=== PATIENT | female | born 1990 | race Caucasian/White ===

== ENCOUNTER 2017-01-16 04:30 | Emergency (ER) | payer BC ==
[~2017-01-16] VITALS: Ht 172.7 cm; Wt 110.7 kg
[2017-01-16] MEDS ORDERED: ONDA8TAB12 PO (04:48)
[2017-01-16] MEDS ORDERED: AMOX500C PO (04:48)
[2017-01-16 04:49] VITALS: BP 128/82
--- NOTE | 2017-01-16 04:49 | PHYS DOC ---
Adult General HPI HPI Patient is a 26 year old female who presents with sore throat. She states it started Monday night. She has body aches and fever. Is still able to swallow. Nausea but no vomiting . Normal stool. No recent travel. Is 6 mo post and . Review of Systems Review of Systems Constitutional: Some fever or chills Eyes: Denies change in visual acuity, redness, or eye pain HENT: Positive nasal congestion or sore throat Respiratory: Denies cough or shortness of breath Cardiovascular: No chest pain GI: Denies abdominal pain, mild nausea, NO vomiting, bloody stools or diarrhea : some dysuria but no hematuria Musculoskeletal: Diffuse joint pain Integument: Denies rash or skin lesions Neurologic: Denies headache, focal weakness or sensory changes Allergies Allergies None Physical Exam Physical Exam Constitutional: Well developed, well nourished, no acute distress, non-toxic appearance. HENT: Normocephalic, atraumatic, TM clear bilaterally; bilateral external ears normal, oropharynx moist, nose normal. Post pharynx with tonsillar enlargement and exudate. No peritonsillar abscess; no uvula swelling. no drooling. Eyes: PERRLA, EOMI, conjunctiva normal, no discharge. [ Neck: Normal range of motion, no tenderness, supple, no stridor. Cardiovascular:Heart rate regular rhythm, no murmur Lungs & Thorax: Bilateral breath sounds clear to auscultation Abdomen: Bowel sounds normal, soft, no tenderness, no masses, no pulsatile masses. Skin: Warm, dry, no erythema, no rash. Back: No tenderness, no CVA tenderness. Extremities: No tenderness, no cyanosis, no clubbing, ROM intact, no edema. Neurologic: Alert and oriented X 3, normal motor function, normal sensory function, no focal deficits noted. Psychologic: Affect normal, judgement normal, mood normal. Current Patient Data Vital Signs Vital Signs Date Time Temp Pulse Resp B/P (MAP) Pulse Ox O2 Delivery O2 Flow Rate FiO2 01/16/17 04:49 100.0 20 97 Room Air Reviewed Course & Med Decision Making Course & Med Decision Making evaluated patient. Non toxic in appearance. Tonsillar exudate noted and will empirically treat for strep. She is breast feeding so will use amoxicillin. ZOfran dosed here. given precautions. She also has complaints of infected hair follicle on her thigh and some burning with urination. Urine sent for culture. Since I am placing her on Amoxicillin will not have patient wait for results of UA as she wants to get home to her baby. Will have her PCP f/u on culture though. Dragon Disclaimer Dragon Disclaimer This chart was dictated in whole or in part using Voice Recognition software in a busy, high-work load, and often noisy Emergency Department environment. It may contain unintended and wholly unrecognized errors or omissions. Departure Departure: Impression: Primary Impression: Exudative pharyngitis Disposition: HOME, SELF-CARE Condition: STABLE Referrals: RADHA MATA MD (PCP) Patient Instructions: Viral and Bacterial Pharyngitis Scripts Ondansetron (ZOFRAN ODT) 8 Mg Tab.rapdis 8 MG PO PRN Q6-8HRS Y for NAUSEA, #10 Prov: BROCK MILLER MD 01/16/17 Amoxicillin (AMOXICILLIN) 500 Mg Capsule 1 CAP PO TID, #30 CAP Prov: BROCK MILLER MD 01/16/17 BROCK MILLER MD Jan 16, 2017 04:49
[2017-01-16] MEDS ORDERED: AMOXICILLIN 500 MG CAPSULE PO ONE (05:00)
[2017-01-16] MEDS ORDERED: ONDANSETRON ODT 4 MG TAB.RAPDIS PO ONE (05:00)
[2017-01-16 06:21] LABS: BILIRUBIN,URINE NEG (NEG); CLARITY,URINE CLEAR; COLOR,URINE YELLOW; GLUCOSE,URINE NEG (NEG); NITRITE,URINE NEG (NEG); UROBILINOGEN,URINE 0.2 mg/dL (0.2 mg/dL)
[2017-01-16 06:22] LABS: BACTERIA,URINE 0 /HPF (0-FEW); RBC,URINE 0 /HPF (0-2); SQUAMOUS EPITHELIAL CELL,UR FEW /LPF
== END 2017-01-16 05:00 | disposition home or self-care (01) ==
LOC: ER 04:30
DX: J02.9 Acute pharyngitis, unspecified (principal); M79.1 Myalgia
CPT/HCPCS: 81001; 87086; 99284; Q0162

== ENCOUNTER 2018-06-21 20:51 | Emergency (ER) | payer BC ==
[~2018-06-21] VITALS: Ht 172.7 cm; Wt 110.7 kg
[~2018-06-21 20:51] MED LIST: AMOX500C PO; ONDA8TAB12 PO
[2018-06-21 21:34] LABS: BASO # 0.1 x10^3/uL (0.0-0.2); BASO % 1 % (0-3); EOS # 0.2 x10^3/uL (0.0-0.7); EOS % 2 % (0-3); HEMATOCRIT 40.8 % (36.0-47.0); HEMOGLOBIN 13.7 g/dL (12.0-15.5); LYMPH # 3.9 x10^3/uL (1.0-4.8); LYMPH % 37 % (24-48); MEAN CORPUSCULAR HEMOGLOBIN 31 pg (25-35); MEAN CORPUSCULAR HGB CONC 34 g/dL (31-37); MEAN CORPUSCULAR VOLUME 91 fL (79-100); MONO # 0.7 x10^3/uL (0.0-1.1); MONO % 6 % (0-9); NEUT # 5.9 x10^3uL (1.8-7.7); NEUT % 55 % (31-73); PLATELET COUNT 378 x10^3/uL (140-400); RED BLOOD COUNT 4.46 x10^6/uL (3.50-5.40); RED CELL DISTRIBUTION WIDTH 12.7 % (11.5-14.5); WHITE BLOOD COUNT 10.7 x10^3/uL (4.0-11.0)
--- NOTE | 2018-06-21 21:38 | PHYS DOC ---
Past History Past Medical History: Anxiety, Hypertension Past Surgical History: Appendectomy Alcohol Use: None Drug Use: None Adult General Chief Complaint Chief Complaint: CHEST WALL PAIN HPI HPI 28-year-old female presents with chest pain. The patient has had intermittent chest pain for last 3 days since she has been sitting for a test. She states that when she really concentrates on whether it hurts the pain increases to 7 out of 10. She is ignoring it, it is a 3 out of 10 and it is currently 3 out of 10. Patient is hopeful that is just anxiety due to her studying, but be sure it wasn't something more serious. She denies shortness of breath or diaphoresis. It is not worse with exertion. She has a history of anxiety and tested anxiety specifically. She denies fever or chills. He has no cardiac history. Review of Systems Review of Systems Constitutional: Denies fever or chills [] Eyes: Denies change in visual acuity, redness, or eye pain [] HENT: Denies nasal congestion or sore throat [] Respiratory: Denies cough or shortness of breath [] Cardiovascular: No additional information not addressed in HPI [] GI: Denies abdominal pain, nausea, vomiting, bloody stools or diarrhea [] : Denies dysuria or hematuria [] Musculoskeletal: Denies back pain or joint pain [] Integument: Denies rash or skin lesions [] Neurologic: Denies headache, focal weakness or sensory changes [] Endocrine: Denies polyuria or polydipsia [] All other systems were reviewed and found to be within normal limits, except as documented in this note. Allergies Allergies Allergies Coded Allergies Type Severity Reaction Last Updated Verified latex Allergy Intermediate 01/16/17 Yes Physical Exam Physical Exam Constitutional: Well developed, obese, well nourished, no acute distress, non- toxic appearance. [] HENT: Normocephalic, atraumatic, bilateral external ears normal, oropharynx moist, no oral exudates, nose normal. [] Eyes: PERRLA, EOMI, conjunctiva normal, no discharge. [] Neck: Normal range of motion, no tenderness, supple, no stridor. [] Cardiovascular:Heart rate regular rhythm, no murmur [] Lungs & Thorax: Bilateral breath sounds clear to auscultation [] Abdomen: Bowel sounds normal, soft, no tenderness, no masses, no pulsatile masses. [] Skin: Warm, dry, no erythema, no rash. [] Back: No tenderness, no CVA tenderness. [] Extremities: No tenderness, no cyanosis, no clubbing, ROM intact, no edema. [] Neurologic: Alert and oriented X 3, normal motor function, normal sensory function, no focal deficits noted. [] Psychologic: Affect normal, judgement normal, mood normal. [] Current Patient Data Vital Signs Vital Signs Date Time Temp Pulse Resp B/P (MAP) Pulse Ox O2 Delivery O2 Flow Rate FiO2 06/21/18 21:01 98.2 105 18 99 Room Air Lab Results Laboratory Tests Test 06/21/18 21:15 White Blood Count 10.7 x10^3/uL (4.0-11.0) Red Blood Count 4.46 x10^6/uL (3.50-5.40) Hemoglobin 13.7 g/dL (12.0-15.5) Hematocrit 40.8 % (36.0-47.0) Mean Corpuscular Volume 91 fL (79-100) Mean Corpuscular Hemoglobin 31 pg (25-35) Mean Corpuscular Hemoglobin Concent 34 g/dL (31-37) Red Cell Distribution Width 12.7 % (11.5-14.5) Platelet Count 378 x10^3/uL (140-400) Neutrophils (%) (Auto) 55 % (31-73) Lymphocytes (%) (Auto) 37 % (24-48) Monocytes (%) (Auto) 6 % (0-9) Eosinophils (%) (Auto) 2 % (0-3) Basophils (%) (Auto) 1 % (0-3) Neutrophils # (Auto) 5.9 x10^3uL (1.8-7.7) Lymphocytes # (Auto) 3.9 x10^3/uL (1.0-4.8) Monocytes # (Auto) 0.7 x10^3/uL (0.0-1.1) Eosinophils # (Auto) 0.2 x10^3/uL (0.0-0.7) Basophils # (Auto) 0.1 x10^3/uL (0.0-0.2) EKG EKG Sinus rhythm, rate 92, normal axis, no ST elevations or depressions.[] Radiology/Procedures Radiology/Procedures [] Impressions: Preliminary interpretation: Chest x-ray no acute cardiopulmonary disease Course & Med Decision Making Course & Med Decision Making Pertinent Labs and Imaging studies reviewed. (See chart for details) The patient's labs are unremarkable. Her chest x-ray is unremarkable. Her EKG is unremarkable. Her troponin is negative. I believe the patient is just dealing with test anxiety. She is stable for discharge at this time. [] Dragon Disclaimer Dragon Disclaimer This electronic medical record was generated, in whole or in part, using a voice recognition dictation system. Departure Departure: Impression: Primary Impression: Chest pain Additional Impression: Anxiety reaction Disposition: HOME, SELF-CARE Condition: STABLE Referrals: RADAH MATA MD (PCP) Patient Instructions: Anxiety and Panic Attacks, [id number], Chest Pain ( Nonspecific) Problem Qualifiers Primary Impression: Chest pain Chest pain type: unspecified Qualified Codes: R07.9 - Chest pain, unspecified PRINCESS MAGAÑA DO Jun 21, 2018 21:38
[2018-06-21 21:45] LABS: ALBUMIN 4.1 g/dL (3.4-5.0); CALCIUM 9.2 mg/dL (8.5-10.1); CREATININE 0.8 mg/dL (0.6-1.0); GFR 84.8; POTASSIUM 3.4 mmol/L (3.5-5.1); TOTAL BILIRUBIN 0.3 mg/dL (0.2-1.0); TOTAL PROTEIN 8.1 g/dL (6.4-8.2)
[2018-06-21 22:50] VITALS: BP 160/87
--- NOTE | 2018-06-22 02:26 | RAD ---
PA and lateral chest. HISTORY: Intermittent chest pain, anxiety, high blood pressure PA and lateral views were taken of the chest. Lungs are clear. Heart is normal in size without heart failure. There is no pleural effusion. IMPRESSION: 1. No acute chest disease. Electronically signed by: Jesu Smith MD (06/22/2018 2:22 AM) [facility]
--- NOTE | 2018-06-23 15:58 | EKG ---
[address] [address] Test Date: 2018-06-21 Test Time: 21:23:47 Pat Name: ALDAIR HATFIELD Department: Room: Gender: F Signal Supervisor: : 1990 Requested By: PRINCESS MAGAÑA Order Number: [id number] Reading MD: Measurements Intervals [place] Rate: 92 P: 42 HI: 146 QRS: 0 QRSD: 94 T: 12 QT: 370 QTc: 463 Interpretive Statements SINUS RHYTHM LEFTWARD AXIS NO SPECIFIC ECG ABNORMALITIES RI6.01 Unconfirmed report No previous ECG available for comparison
== END 2018-06-21 23:14 | disposition home or self-care (01) ==
LOC: ER 20:51
DX: F41.1 Generalized anxiety disorder (principal); R07.89 Other chest pain; I10 Essential (primary) hypertension; Z91.040 Latex allergy status
CPT/HCPCS: 36415; 71046; 80053; 84484; 85025; 93005; 99284

== ENCOUNTER 2018-08-21 16:09 | Emergency (ER) | payer BC ==
[2018-08-21 16:25] VITALS: BP 154/81
[2018-08-21] MEDS ORDERED: DIAZ5TAB4 PO (16:40)
[2018-08-21] MEDS ORDERED: MECL25TA3 PO (16:40)
--- NOTE | 2018-08-21 16:40 | PHYS DOC ---
Past History Past Medical History: Anxiety, Hypertension Past Surgical History: Appendectomy Alcohol Use: None Drug Use: None Adult General Chief Complaint Chief Complaint: EARACHE/EAR PAIN HPI HPI Patient is a 28-year-old otherwise healthy female who presents with dizziness. She states is been ongoing all day. She states anytime she moves her head her symptoms worsen. She denies any significant headache or lateralizing neurologic weakness. She states she's had this in the past and they've been told that certain her ear. She denies any fever..[] Review of Systems Review of Systems Constitutional: Denies fever or chills [] Eyes: Denies change in visual acuity, redness, or eye pain [] HENT: Denies nasal congestion or sore throat [] Respiratory: Denies cough or shortness of breath [] Cardiovascular: No additional information not addressed in HPI [] GI: Denies abdominal pain, nausea, vomiting, bloody stools or diarrhea [] : Denies dysuria or hematuria [] Musculoskeletal: Denies back pain or joint pain [] Integument: Denies rash or skin lesions [] Neurologic: Per history of present illness[] Endocrine: Denies polyuria or polydipsia [] All other systems were reviewed and found to be within normal limits, except as documented in this note. Allergies Allergies Allergies Coded Allergies Type Severity Reaction Last Updated Verified latex Allergy Intermediate 01/16/17 Yes Physical Exam Physical Exam Constitutional: Well developed, well nourished, appears very uncomfortable[] HENT: Normocephalic, atraumatic, bilateral external ears normal, minimal cerumen bilaterally, oropharynx moist, no oral exudates, nose normal. [] Eyes: PERRLA, EOMI, conjunctiva normal, no discharge. [] Neck: Normal range of motion, no tenderness, supple, no stridor. [] Cardiovascular:Heart rate regular rhythm, no murmur [] Lungs & Thorax: Bilateral breath sounds clear to auscultation [] Abdomen: Bowel sounds normal, soft, no tenderness, no masses, no pulsatile masses. [] Skin: Warm, dry, no erythema, no rash. [] Back: No tenderness, no CVA tenderness. [] Extremities: No tenderness, no cyanosis, no clubbing, ROM intact, no edema. [] Neurologic: No nystagmus[] Psychologic: Affect normal, judgement normal, mood normal. [] Current Patient Data Vital Signs Vital Signs Date Time Temp Pulse Resp B/P (MAP) Pulse Ox O2 Delivery O2 Flow Rate FiO2 08/21/18 16:25 97.2 90 18 97 Room Air EKG EKG [] Radiology/Procedures Radiology/Procedures [] Course & Med Decision Making Course & Med Decision Making Pertinent Labs and Imaging studies reviewed. (See chart for details) [] Dragon Disclaimer Dragon Disclaimer This electronic medical record was generated, in whole or in part, using a voice recognition dictation system. Departure Departure: Impression: Primary Impression: Vertigo Disposition: HOME, SELF-CARE Condition: STABLE Referrals: RADHA MATA MD (PCP) Patient Instructions: Benign Positional Vertigo, Vertigo Additional Instructions: Take meclizine as directed for dizziness. Should her symptoms worsen I have provided she with a few Valium tablets this is a little stronger medicine that will accomplish the same solution for your dizziness. Return to the emergency department with any new or concerning symptoms Scripts Diazepam (DIAZEPAM) 5 Mg Tablet 5 MG PO Q8HRS PRN for severe dizziness, #10 TAB Prov: SHEMAR HEAD DO 08/21/18 Meclizine Hcl (MECLIZINE HCL) 25 Mg Tablet 1 TAB PO Q6HRS PRN for dizziness, #30 TAB Prov: SHEMAR HEAD DO 08/21/18 SHEMAR HEAD DO Aug 21, 2018 16:40
[2018-08-21] MEDS ORDERED: ONDANSETRON ODT 4 MG TAB.RAPDIS PO ONE (16:45)
[2018-08-21] MEDS ORDERED: diazePAM 5 MG TABLET PO ONE (16:45)
== END 2018-08-21 17:00 | disposition home or self-care (01) ==
LOC: ER 16:09
DX: R42 Dizziness and giddiness (principal); F41.9 Anxiety disorder, unspecified; I10 Essential (primary) hypertension; Z91.040 Latex allergy status
CPT/HCPCS: 99283; Q0162

== ENCOUNTER 2019-03-09 08:37 | Emergency (ER) | payer BC ==
[~2019-03-09] VITALS: Ht 172.7 cm; Wt 108.9 kg
[~2019-03-09 08:37] MED LIST changes: +DIAZ5TAB4 PO; +MECL25TA3 PO
[2019-03-09 09:03] LABS: BASO % 1 % (0-3); EOS # 0.3 x10^3/uL (0.0-0.7); EOS % 5 % (0-3); HEMATOCRIT 41.4 % (36.0-47.0); HEMOGLOBIN 14.1 g/dL (12.0-15.5); LYMPH % 54 % (24-48); MEAN CORPUSCULAR HEMOGLOBIN 32 pg (25-35); MEAN CORPUSCULAR HGB CONC 34 g/dL (31-37); MEAN CORPUSCULAR VOLUME 93 fL (79-100); MONO # 0.3 x10^3/uL (0.0-1.1); MONO % 6 % (0-9); NEUT % 35 % (31-73); PLATELET COUNT 372 x10^3/uL (140-400); RED BLOOD COUNT 4.47 x10^6/uL (3.50-5.40); RED CELL DISTRIBUTION WIDTH 12.6 % (11.5-14.5); WHITE BLOOD COUNT 5.6 x10^3/uL (4.0-11.0)
[2019-03-09 09:16] LABS: ALBUMIN 4.1 g/dL (3.4-5.0); CALCIUM 8.8 mg/dL (8.5-10.1); CREATININE 0.8 mg/dL (0.6-1.0); GFR 84.8; POTASSIUM 3.9 mmol/L (3.5-5.1); TOTAL BILIRUBIN 0.4 mg/dL (0.2-1.0); TOTAL PROTEIN 8.2 g/dL (6.4-8.2)
--- NOTE | 2019-03-09 09:16 | PHYS DOC ---
Past History Past Medical History: Anxiety, Hypertension Past Surgical History: Appendectomy Alcohol Use: None Drug Use: None Adult General Chief Complaint Chief Complaint: CHEST PAIN HPI HPI 28-year-old female presents with chest pain and shortness of breath. She has been having intermittent chest pain for the last 1-2 weeks. It has been worse the last 2 days. She notices it the most when she stands up and alert herself. She said there is a pressure in her chest that is 2 out of 10. She gets winded very quickly and this is what is most bothersome to her. Patient recently had a viral URI 2 weeks ago that she is not sure she is completely over. She still has postnasal drip. Patient has a history of seasonal allergies. She has no history of asthma or other lung problems. No cardiac history. She denies fever or chills. Review of Systems Review of Systems Constitutional: Denies fever or chills [] Eyes: Denies change in visual acuity, redness, or eye pain [] HENT: Denies nasal congestion or sore throat [] Respiratory: shortness of breath [] Cardiovascular: No additional information not addressed in HPI [] GI: Denies abdominal pain, nausea, vomiting, bloody stools or diarrhea [] : Denies dysuria or hematuria [] Musculoskeletal: Denies back pain or joint pain [] Integument: Denies rash or skin lesions [] Neurologic: Denies headache, focal weakness or sensory changes [] Endocrine: Denies polyuria or polydipsia [] All other systems were reviewed and found to be within normal limits, except as documented in this note. Allergies Allergies Allergies Coded Allergies Type Severity Reaction Last Updated Verified latex Allergy Intermediate 01/16/17 Yes Physical Exam Physical Exam Constitutional: Well developed, obese, well nourished, no acute distress, non- toxic appearance. [] HENT: Normocephalic, atraumatic, bilateral external ears normal, oropharynx moist, no oral exudates, nose normal. [] Eyes: PERRLA, EOMI, conjunctiva normal, no discharge. [] Neck: Normal range of motion, no tenderness, supple, no stridor. [] Cardiovascular:Heart rate regular rhythm, no murmur [] Lungs & Thorax: Bilateral breath sounds clear to auscultation [] Abdomen: Bowel sounds normal, soft, no tenderness, no masses, no pulsatile masses. [] Skin: Warm, dry, no erythema, no rash. [] Back: No tenderness, no CVA tenderness. [] Extremities: No tenderness, no cyanosis, no clubbing, ROM intact, no edema. [] Neurologic: Alert and oriented X 3, normal motor function, normal sensory function, no focal deficits noted. [] Psychologic: Affect normal, judgement normal, mood normal. [] Current Patient Data Vital Signs Vital Signs Date Time Temp Pulse Resp B/P (MAP) Pulse Ox O2 Delivery O2 Flow Rate FiO2 03/09/19 08:43 89 16 100 Room Air EKG EKG Sinus rhythm, rate 79, normal axis, no ST elevations or depressions.[] Radiology/Procedures Radiology/Procedures [] Impressions: EXAM: Chest, 2 views. HISTORY: Chest pain. COMPARISON: 06/21/2018. FINDINGS: 2 views of the chest are obtained. There is no infiltrate, pleural effusion or pneumothorax. The heart is normal in size. IMPRESSION: No acute pulmonary finding. Electronically signed by: Izzy Garnica MD (03/09/2019 9:25 AM) [facility] DICTATED AND SIGNED BY: IZZY GARNICA MD DATE: 03/09/19924 CC: PRINCESS MAGAÑA DO; IZZY PAREKH MD ~ Course & Med Decision Making Course & Med Decision Making Pertinent Labs and Imaging studies reviewed. (See chart for details) The patient's EKG is unremarkable. Chest x-ray is negative for acute findings. Labs are unremarkable. Her troponin is negative. Her heart score is 1. The patient's urinalysis is suggestive of UTI. I will treat her with 1 g of Rocephin followed by 5 days of Macrobid. She does not meet criteria for admission. She is stable for discharge at this time. [] Dragon Disclaimer Dragon Disclaimer This electronic medical record was generated, in whole or in part, using a voice recognition dictation system. The HEART Score for CP Pts HEART Score for Chest Pain: HEART Score for Chest Pain Response (Comments) Value History Slighlty/Non-Suspicious 0 ECG Normal 0 Age < 45 0 Risk Factors 1 or 2 Risk Factors 1 Troponin < Normal Limit 0 Total 1 Risk Factors: Risk Factors: DM, Current or recent (<one month) smoker, HTN, HLP, family history of CAD, obesity. Risk Scores: Score 0 - 3: 2.5% MACE over next 6 weeks - Discharge Home Score 4 - 6: 20.3% MACE over next 6 weeks - Admit for Clinical Observation Score 7 - 10: 72.7% MACE over next 6 weeks - Early Invasive Strategies Departure Departure: Impression: Primary Impression: Chest pain Additional Impression: UTI (urinary tract infection) Disposition: HOME, SELF-CARE Condition: STABLE Referrals: IZZY PAREKH MD (PCP) Patient Instructions: Chest Pain (Nonspecific), Nxtd-fu-Ptoa, Urinary Tract Infection, Gnkg-py-Iqno Scripts Nitrofurantoin Monohyd/M-Cryst (MACROBID 100 MG CAPSULE) 100 Mg Capsule 1 CAP PO BID for uti, #10 CAP Prov: PRINCESS MAGAÑA DO 03/09/19 Problem Qualifiers Primary Impression: Chest pain Chest pain type: other chest pain Qualified Codes: R07.89 - Other chest pain Additional Impression: UTI (urinary tract infection) Urinary tract infection type: acute cystitis Hematuria presence: with hematuria Qualified Codes: N30.01 - Acute cystitis with hematuria PRINCESS MAGAÑA DO Mar 09, 2019 09:16
--- NOTE | 2019-03-09 09:28 | RAD ---
EXAM: Chest, 2 views. HISTORY: Chest pain. COMPARISON: 06/21/2018. FINDINGS: 2 views of the chest are obtained. There is no infiltrate, pleural effusion or pneumothorax. The heart is normal in size. IMPRESSION: No acute pulmonary finding. Electronically signed by: Izzy Garnica MD (03/09/2019 9:25 AM) [facility]
[2019-03-09 09:40] VITALS: BP 125/76
[2019-03-09 10:24] LABS: BARBITURATES NEG (NEG); BENZODIAZEPINES NEG (NEG); CANNABINOIDS NEG (NEG); COCAINE NEG (NEG); METHADONE NEG (NEG); OPIATES NEG (NEG); PHENCYCLIDINE NEG (NEG)
[2019-03-09 10:25] LABS: AMPHETAMINE/METHAMPHETAMINE NEG (NEG)
[2019-03-09 10:33] LABS: BILIRUBIN,URINE NEG (NEG); CLARITY,URINE HAZY; COLOR,URINE YELLOW; GLUCOSE,URINE NEG (NEG)
[2019-03-09 10:34] LABS: BACTERIA,URINE MOD /HPF (0-FEW); NITRITE,URINE NEG (NEG); SQUAMOUS EPITHELIAL CELL,UR MOD /LPF; UROBILINOGEN,URINE 0.2 mg/dL (0.2 mg/dL)
[2019-03-09] MEDS ORDERED: NITR100C62 PO (10:45)
[2019-03-09] MEDS ORDERED: IV NORMAL SALINE 50ML 50 ML ONE (10:56)
[2019-03-09] MEDS ORDERED: cefTRIAXone SODIUM 1 GM VIAL ONE (10:56)
--- NOTE | 2019-03-11 07:44 | EKG ---
[address] [address] Test Date: 2019-03-09 Test Time: 08:52:13 Pat Name: ALDAIR HATFIELD Department: Room: Gender: F Protection Manager: SHILPI : 1990 Requested By: PRINCESS MAGAÑA Order Number: [id number] Reading MD: Hugh Hines MD Measurements Intervals [place] Rate: 79 P: 36 NM: 138 QRS: 0 QRSD: 88 T: 24 QT: 380 QTc: 437 Interpretive Statements SINUS RHYTHM Electronically Signed On 03-19-2019 10:23:54 CDT by Hugh Hines MD
== END 2019-03-09 11:09 | disposition home or self-care (01) ==
LOC: ER 08:37
DX: R07.89 Other chest pain (principal); N39.0 Urinary tract infection, site not specified; F41.9 Anxiety disorder, unspecified; I10 Essential (primary) hypertension; Z91.040 Latex allergy status
CPT/HCPCS: 36415; 71046; 80053; 80307; 81001; 84484; 85025; 87086; 93005; 96374; 99285; J0696

== ENCOUNTER 2020-11-03 08:00 | Emergency (ER) | payer BC, OTHER ==
[~2020-11-03] VITALS: Ht 172.7 cm; Wt 124.7 kg
[~2020-11-03 08:00] MED LIST changes: +MECL-75 PO; -MECL25TA3 PO; +NITR100C62 PO
[2020-11-03] MEDS ORDERED: METOCLOPRAMIDE HCL 10 MG/2 ML VIAL. ONE (08:30)
[2020-11-03] MEDS ORDERED: DEXAMETHASONE SOD PHOS 10 MG/ML VIAL. IVP ONE (08:30)
[2020-11-03] MEDS ORDERED: diphenhydrAMINE 50 MG/ML VIAL ONE (08:30)
[2020-11-03] MEDS ORDERED: IV NORMAL SALINE 1,000ML 1,000 ML IV ONE (08:30)
[2020-11-03] MEDS ORDERED: diphenhydrAMINE 50 MG/ML VIAL IVP ONE (08:30)
[2020-11-03] MEDS ORDERED: KETOROLAC 15 MG/ML VIAL. IVP ONE (08:30)
[2020-11-03] MEDS ORDERED: METOCLOPRAMIDE HCL 10 MG/2 ML VIAL. IVP ONE (08:30)
--- NOTE | 2020-11-03 08:30 | PHYS DOC ---
Past History Past Medical History: Anxiety, Hypertension Past Surgical History: Appendectomy, Other Additional Past Surgical Histo: hip Smoking: Non-smoker Alcohol Use: None Drug Use: None General Adult EDM: Chief Complaint: HEADACHE HPI: HPI: 30-year-old female presents with report of headache behind both eyes but primarily to right frontal region. Patient reports started last night after patient had been "intimate" with her . Reports some associated nausea and vomiting. Patient reports she tried taking some Tylenol which she promptly threw up. Patient reports associated photophobia. Denies any fever or chills. Denies neck pain. Patient does report associated dizziness. Review of Systems: Review of Systems: Constitutional: Denies fever or chills Eyes: Denies redness or eye pain HENT: Denies nasal congestion or sore throat Respiratory: Denies cough or shortness of breath Cardiovascular: Denies chest pain or palpitations GI: Denies abdominal pain; reports nausea and vomiting : Denies dysuria or hematuria Musculoskeletal: Denies back pain or joint pain Integument: Denies rash or skin lesions Neurologic: Reports headache; denies focal weakness or sensory changes; reports dizziness Complete systems were reviewed and found to be within normal limits, except as documented in this note. Allergies: Allergies: Allergies Coded Allergies Type Severity Reaction Last Updated Verified latex Allergy Intermediate 11/03/20 Yes Physical Exam: PE: Constitutional: Well developed, well nourished, appears uncomfortable, non-toxic appearance HENT: Normocephalic, atraumatic Eyes: PERRL, EOMI, conjunctiva normal, no discharge, photophobia Neck: Normal range of motion, no tenderness, supple, no meningeal signs Lungs & Thorax: No respiratory distress, equal chest rise and fall Abdomen: Soft, no tenderness, no guarding/rebound tenderness/distention Skin: Warm, dry, no erythema, no rash Extremities: No tenderness, ROM intact, no edema Neurologic: Alert and oriented X 3, normal motor function, normal sensory function, no focal deficits noted Psychologic: Affect normal, judgment normal Current Patient Data: Vital Signs: Vital Signs Date Time Temp Pulse Resp B/P (MAP) Pulse Ox O2 Delivery O2 Flow Rate FiO2 11/03/20 08:05 98.2 95 18 151/81 (104) 98 Room Air EKG: EKG: [] Radiology/Procedures: Radiology/Procedures: PROCEDURE: CT HEAD WO CONTRAST EXAM: Head CT without contrast. HISTORY: Headache. TECHNIQUE: Computed tomographic images of the head were obtained without contrast. *One or more of the following individualized dose reduction techniques were utilized for this examination: 1. Automated exposure control. 2. Adjustment of the mA and/or kV according to patient size. 3. Use of iterative reconstruction technique. COMPARISON: None. FINDINGS: There is no acute or subacute extra-axial or intraparenchymal hemorrhage. There is no mass effect or midline shift. There is no hydrocephalus. The mathis-white matter differentiation pattern is intact. There is a right maxillary sinus mucous retention cyst. The mastoid air cells are clear. There is no suspicious calvarial lesion. IMPRESSION: No acute intracranial findings. Electronically signed by: Izzy Garnica MD (11/03/2020 8:44 AM) [id number] Heart Score: C/O Chest Pain: N/A Course & Med Decision Making: Course & Med Decision Making Pertinent Imaging studies reviewed. (See chart for details) Patient presents with sudden headache primarily to the right side. Reports associated nausea/vomiting, dizziness, and photophobia. Patient neurologically intact. Afebrile. No meningeal signs appreciated. CT head without acute process. Symptomatic treatment provided including IV fluid hydration. Patient reports interval improvement of symptoms. Patient stable for discharge with outpatient follow-up with PCP/neurologist. Neurology referral provided. Discussed findings and plan with patient and family, who acknowledge understanding and agreement. Alisa Disclaimer: Alisa Disclaimer: This electronic medical record was generated, in whole or in part, using a voice recognition dictation system. Departure Departure: Impression: Primary Impression: Headache Qualified Codes: R51.9 - Headache, unspecified Disposition: HOME / SELF CARE / HOMELESS Condition: IMPROVED Referrals: IZZY PAREKH MD (PCP) [place] MD Patient Instructions: Headache, FAQs Additional Instructions: Increase fluid hydration. May use over the counter Naproxen or Ibuprofen in addition to prescribed medications. Scripts Butalb/Acetaminophen/Caffeine (PTUNAL-MMFNILCG-OLLK 50-325-40) 1 Each Tablet 1 EACH PO Q6HRS PRN for HEADACHE, #14 TAB Prov: VIKY LINDSEY DO 11/03/20 Ondansetron (ONDANSETRON ODT) 4 Mg Tab.rapdis 1 TAB PO PRN Q6-8HRS PRN for NAUSEA, #16 TAB Prov: VIKY LINDSEY DO 11/03/20 VIKY LINDSEY DO November 03, 2020 08:30
[2020-11-03] MEDS ORDERED: DEXAMETHASONE SOD PHOS 10 MG/ML VIAL. ONE (08:31)
[2020-11-03] MEDS ORDERED: KETOROLAC 15 MG/ML VIAL. ONE (08:31)
--- NOTE | 2020-11-03 08:47 | RAD ---
EXAM: Head CT without contrast. HISTORY: Headache. TECHNIQUE: Computed tomographic images of the head were obtained without contrast. *One or more of the following individualized dose reduction techniques were utilized for this examina tion: 1. Automated exposure control. 2. Adjustment of the mA and/or kV according to patient size. 3. Use of iterative reconstruction technique. COMPARISON: None. FINDINGS: There is no acute or subacute extra-axial or intraparenchymal hemorrhage. There is no mass effect or midline shift. There is no hydrocephalus. The mathis-white matter differentiation pattern is intact. There is a right maxillary sinus mucous retention cyst. The mastoid air cells are clear. There is no suspicious calvarial lesion. IMPRESSION: No acute intracranial findings. Electronically signed by: Izzy Garnica MD (11/03/2020 8:44 AM) [id number]
[2020-11-03] MEDS ORDERED: ONDA4TAB12 PO (09:12)
[2020-11-03] MEDS ORDERED: BUTA1TAB23 PO (09:12)
[2020-11-03 09:35] VITALS: BP 137/89
== END 2020-11-03 09:37 | disposition home or self-care (01) ==
LOC: ER 08:00
DX: R51.9 Headache, unspecified (principal); R11.2 Nausea with vomiting, unspecified; R42 Dizziness and giddiness; H53.143 Visual discomfort, bilateral; F41.9 Anxiety disorder, unspecified; I10 Essential (primary) hypertension; Z91.040 Latex allergy status
CPT/HCPCS: 70450; 96361; 96374; 96375; 99284; J1100; J1200; J1885; J2765; J7030

== ENCOUNTER 2021-01-09 16:20 | Emergency (ER) | payer BC, OTHER ==
[~2021-01-09] VITALS: Ht 172.7 cm; Wt 123.1 kg
[~2021-01-09 16:20] MED LIST changes: +BUTA1TAB23 PO; +ONDA4TAB12 PO
[2021-01-09] MEDS ORDERED: ONDANSETRON PF 4 MG/2 ML VIAL. IVP ONE (16:45)
[2021-01-09] MEDS ORDERED: methylPREDNISolone SOD SUCC PF 125 MG/2 ML VIAL. IV ONE (16:45)
[2021-01-09] MEDS ORDERED: FAMOTIDINE 20 MG/2 ML VIAL IVP ONE (16:45)
[2021-01-09] MEDS ORDERED: IV NORMAL SALINE 1,000ML 1,000 ML IV SCH (16:45)
[2021-01-09] MEDS ORDERED: diphenhydrAMINE 50 MG/ML VIAL IV ONE (16:45)
[2021-01-09] MEDS ORDERED: EPIN0.3A3 IM (16:49)
[2021-01-09] MEDS ORDERED: PRED50TA PO (16:49)
--- NOTE | 2021-01-09 16:51 | PHYS DOC ---
Past History Past Medical History: Anxiety, Hypertension (TIFFANIE WARNER DO) Past Surgical History: Appendectomy, Other Additional Past Surgical Histo: hip (TIFFANIE WARNER DO) Smoking: Non-smoker Alcohol Use: None Drug Use: None (TIFFANIE WARNER DO) General Adult EDM: Chief Complaint: ALLERGIC REACTION Problems: (1) Allergic reaction caused by a drug (TIFFANIE WARNER DO) HPI: HPI: 30-year-old female presents to the emergency department with suspected allergic reaction that has developed over the past 1 hour. She was seen in urgent care earlier today and had an incision and drainage procedure done for an abscess in the left lower extremity that was uncomplicated. She was prescribed Bactrim after the procedure. She took Bactrim approximately 1 hour ago and after the administration of Bactrim she began to experience hives over her extremities and trunk, swelling in the back of her throat and difficulty breathing. She now complains of some abdominal discomfort, nausea and vomiting. She denies any other potential allergens at this time. She has not treated herself at all for her symptoms and she reports the symptoms have been getting worse. She denies any chest pain, shortness of breath, fever, chills, recent illness. She does complains of some leg pain after the I&D (TIFFANIE WARNER DO) Review of Systems: Review of Systems: Constitutional: Denies fever or chills. Eyes: Denies change in vision, pain. HENT: Admits to throat swelling, denies congestion. Respiratory: Admits to shortness of breath, denies cough. Cardiovascular: Denies chest pain or edema. GI: Admits to nausea, abdominal pain. : Denies change in urination, dysuria. Musculoskeletal: Denies extremity pain, or trauma. Skin: Admits to rash, hives. Neurologic: Denies headache, focal weakness. Psychiatric: Denies depression or anxiety. All other systems reviewed as negative except for what was mentioned in the HPI. (TIFFANIE WARNER DO) Family History: Family History: Noncontributory (TIFFANIE WARNER DO) Current Medications: Current Meds: Current Medications Medications (Trade) Dose Ordered Sig/Paradise Start Time Stop Time Status Last Admin Dose Admin Diphenhydramine HCl (Benadryl) 50 mg 1X ONCE 01/09/21 16:45 01/09/21 16:46 Famotidine (Pepcid Vial) 20 mg 1X ONCE 01/09/21 16:45 01/09/21 16:46 Methylprednisolone Sodium Succinate (SOLU-Medrol 125MG VIAL) 125 mg 1X ONCE 01/09/21 16:45 01/09/21 16:46 Sodium Chloride 1,000 ml @ 1,000 mls/hr Q1H 01/09/21 16:45 01/09/21 17:44 (TIFFANIE WARNER DO) Allergies: Allergies: Allergies Coded Allergies Type Severity Reaction Last Updated Verified latex Allergy Intermediate 11/03/20 Yes (TIFFANIE WARNER DO) Physical Exam: PE: Constitutional: Mild distress, nontoxic appearance. HENT: Atraumatic, bilateral external ears normal, nose normal. Oropharynx appears clear, tonsils appear large, her airway is patent, there is no submandibular swelling and the patient speaks in full sentences Eyes: PERRLA, EOMI, conjunctiva normal, no discharge. Neck: Normal range of motion, supple, no stridor. Cardiovascular: Tachycardic, 2+ radial pulses Lungs & Thorax: No respiratory distress, symmetrical expansion. Bilateral breath sounds clear to auscultation Abdomen: Soft, no tenderness Skin: Hives are noted over the extremities bilaterally, the trunk, chest, neck Extremities: No tenderness, no cyanosis, ROM intact, no edema. Neurologic: Alert and oriented X 3, normal motor function, normal sensory function, no focal deficits noted. Non ataxic gait. GCS 15. Psychologic: Affect normal, judgment normal, mood normal. (TIFFANIE WARNER DO) Current Patient Data: Vital Signs: Vital Signs Date Time Temp Pulse Resp B/P (MAP) Pulse Ox O2 Delivery O2 Flow Rate FiO2 01/09/21 17:15 91 20 136/79 (98) 99 Room Air 01/09/21 16:20 97.6 104 24 156/98 100 Room Air (TIFFANIE WARNER DO) Heart Score: C/O Chest Pain: No (TIFFANIE WARNER DO) Course & Med Decision Making: Course & Med Decision Making Patient was seen immediately upon entrance to the exam room, she displayed signs of anaphylaxis including multiple organ system involvement including her GI system, ear nose and throat and potential airway involvement. She was saturating well on room air was slightly tachycardic and had some skin involvement with hives. She was given an EpiPen, steroids, Benadryl, Pepcid, fluids and will be observed in the emergency department. She will be placed on prednisone and given as needed EpiPen's for home advised to stop Bactrim and start doxycycline instead. She improved significantly after epipen and meds. Critical care time was 30 minutes which includes time at bedside, spent in discussion of patient's care with specialists and/or family members, with interpretation of laboratory and/or radiological studies and is exclusive of procedures. Patient was signed out to Dr. Magaña at 1800, pending reassessment after epinephrine administration. (TIFFANIE WARNER DO) Course & Med Decision Making The patient has had no further complications. She is stable for discharge at this time. (PRINCESS MAGAÑA DO) Departure Departure: Impression: Primary Impression: Anaphylactic reaction due to adverse effect of correct drug or medicament properly administered, initial encounter Disposition: HOME / SELF CARE / HOMELESS Condition: IMPROVED Referrals: NILESH PAREKH MD (PCP) Patient Instructions: Anaphylactic Reaction, [id number] Additional Instructions: You were seen for a allergic reaction. You should take the entire course of steroids as prescribed. You need to follow up in the allergy or medicine clinic for further evaluation. It is unclear what caused your reaction. If you start to have shortness of breath, facial swelling, tongue swelling, difficulty swallowing, or any other concerning symptoms you should take your epipen and call 911 to return to the ED. You were seen in the emergency department and your health condition was deemed not to require admission to the hospital. It is important to realize that we can only evaluate you during the time that you are in her department. Occasionally health conditions can worsen upon leaving the emergency department. If this were to happen, please return to and allow us the opportunity to reevaluate you. It is a pleasure to take care of your health needs. Return to the ER if your symptoms worsen, do not improve, or if you develop additional symptoms that are concerning to you Scripts Clindamycin Hcl (CLINDAMYCIN HCL) 300 Mg Capsule 1 CAP PO TID for abscess for 7 Days, #21 CAP Prov: PRINCESS MAGAÑA DO 01/09/21 Prednisone (PREDNISONE) 50 Mg Tablet 1 TAB PO DAILY for allergic reaction, #5 TAB Prov: TIFFANIE WARNER DO 7/31/21 Epinephrine (Epipen) 0.3 Mg/0.3 Ml Auto.injct 0.3 MG IM UD for allergic reaction, #2 SYR 0 Refills Prov: TIFFANIE WARNER DO 01/09/21 TIFFANIE WARNER DO Jan 09, 2021 16:51 PRINCESS MAGAÑA DO Jan 10, 2021 05:01
[2021-01-09] MEDS ORDERED: CLIN300C9 PO (18:31)
[2021-01-09 18:32] VITALS: BP 127/94
== END 2021-01-09 18:35 | disposition home or self-care (01) ==
LOC: ER 16:20
DX: T88.6XXA Anaphylactic reaction due to adverse effect of correct drug or medicament properly administered, initial encounter (principal); T36.8X5A Adverse effect of other systemic antibiotics, initial encounter; F41.9 Anxiety disorder, unspecified; I10 Essential (primary) hypertension; Z91.040 Latex allergy status; Y92.89 Other specified places as the place of occurrence of the external cause
CPT/HCPCS: 81025; 96361; 96372; 96374; 96375; 99284; J0171; J1200; J2405; J2930; J3490; J7030

== ENCOUNTER 2021-06-12 08:46 | Emergency (ER) | payer BC ==
[~2021-06-12] VITALS: Ht 172.7 cm; Wt 123.8 kg
[~2021-06-12 08:46] MED LIST changes: +CLIN-95 PO; +EPIN0.3A3 IM; +PRED50TA PO
[2021-06-12 08:56] VITALS: BP 146/84
[2021-06-12 09:38] LABS: BASO % 0 % (0-3); EOS # 0.2 x10^3/uL (0.0-0.7); EOS % 3 % (0-3); HEMOGLOBIN 13.7 g/dL (12.0-15.5); LYMPH # 3.4 x10^3/uL (1.0-4.8); LYMPH % 50 % (24-48); MEAN CORPUSCULAR HEMOGLOBIN 31 pg (25-35); MEAN CORPUSCULAR HGB CONC 32 g/dL (31-37); MEAN CORPUSCULAR VOLUME 97 fL (79-100); MONO # 0.6 x10^3/uL (0.0-1.1); MONO % 8 % (0-9); NEUT # 2.7 x10^3uL (1.8-7.7); NEUT % 39 % (31-73); PLATELET COUNT 322 x10^3/uL (140-400); RED BLOOD COUNT 4.43 x10^6/uL (3.50-5.40); RED CELL DISTRIBUTION WIDTH 13.6 % (11.5-14.5); WHITE BLOOD COUNT 6.9 x10^3/uL (4.0-11.0)
[2021-06-12 09:40] LABS: HEMOGLOBIN ISTAT 13.9 gm/dL; POTASSIUM ISTAT 3.9 mmol/L (3.5-5.0)
--- NOTE | 2021-06-12 10:17 | RAD ---
EXAMINATION: XR CHEST 1V CLINICAL HISTORY: Chest pressure/coughing up blood EXAM DATE/TIME: 06/12/2021 9:36 AM COMPARISON: 03/09/2019 FINDINGS: Lines, Tubes, and Devices: None. Cardiomediastinal Silhouette: Within normal limits. Lungs and Pleura: Pulmonary hypoexpansion without evidence of focal airspace consolidation or pleural effusion. Pulmonary vasculature unremarkable. Bones and Soft Tissues: No acute osseous abnormality. IMPRESSION: No evidence of acute cardiopulmonary abnormality or significant interval change. Electronically signed by: Adrian Cid DO (06/12/2021 10:15 AM) [facility]
--- NOTE | 2021-06-12 10:44 | PHYS DOC ---
Past History Past Medical History: Anxiety, Hypertension Past Surgical History: Appendectomy, Other Additional Past Surgical Histo: hip Smoking: Non-smoker Alcohol Use: None Drug Use: None General Adult EDM: Chief Complaint: MULTIPLE COMPLAINTS HPI: HPI: Patient is a 29-year-old female coming in for epigastric pain and substernal chest pressure. Patient states that she was pulling tile and hurt her back, was seen at urgent care yesterday and given a Toradol injection. Patient states that she had had some nausea and upset stomach last night which she attributed to her [id number]'s cooking, is in today because she is concerned that she is having this substernal chest pressure. She also states that while she was drinking tea this morning and noticed a small amount of blood in her mouth. Denies any vomiting, coughing, or dental pain. Review of Systems: Review of Systems: All other systems within normal limits except for as noted in the HPI Allergies: Allergies: Allergies Coded Allergies Type Severity Reaction Last Updated Verified latex Allergy Intermediate 11/03/20 Yes Uncoded Allergies Type Severity Reaction Last Updated Verified SULFA Allergy Unknown 06/12/21 Physical Exam: PE: Constitutional: Well developed, well nourished, no acute distress, non-toxic appearance. [] HENT: Normocephalic, atraumatic, bilateral external ears normal, nose normal. [] Eyes: PERRLA, conjunctiva normal, no discharge. [] Neck: No rigidity, supple, no stridor. [] Cardiovascular: Regular rate and rhythm, brisk cap refill [] Lungs & Thorax: Non labored symmetric respirations, no tachypnea or respiratory distress. Lungs clear to auscultation Abdomen: Soft, nondistended, epigastric tenderness without guarding. Skin: Warm, dry, no erythema, no rash. [] Back: Unremarkable, no step-off or deformity, no point spine tenderness, tenderness over paraspinous muscles on right lower thoracic area Extremities: No deformities, range of motion grossly intact, no lower extremity edema [] Neurologic: Alert and oriented X 3, no focal deficits noted. [] Psychologic: Affect normal, judgement normal, mood normal. [] Current Patient Data: Labs: Laboratory Tests Test 06/12/21 09:12 White Blood Count 6.9 x10^3/uL (4.0-11.0) Red Blood Count 4.43 x10^6/uL (3.50-5.40) Hemoglobin 13.7 g/dL (12.0-15.5) POC Hemoglobin 13.9 gm/dL Hematocrit 43.0 % (36.0-47.0) POC Hematocrit 41 % Mean Corpuscular Volume 97 fL (79-100) Mean Corpuscular Hemoglobin 31 pg (25-35) Mean Corpuscular Hemoglobin Concent 32 g/dL (31-37) Red Cell Distribution Width 13.6 % (11.5-14.5) Platelet Count 322 x10^3/uL (140-400) Neutrophils (%) (Auto) 39 % (31-73) Lymphocytes (%) (Auto) 50 % (24-48) H Monocytes (%) (Auto) 8 % (0-9) Eosinophils (%) (Auto) 3 % (0-3) Basophils (%) (Auto) 0 % (0-3) Neutrophils # (Auto) 2.7 x10^3uL (1.8-7.7) Lymphocytes # (Auto) 3.4 x10^3/uL (1.0-4.8) Monocytes # (Auto) 0.6 x10^3/uL (0.0-1.1) Eosinophils # (Auto) 0.2 x10^3/uL (0.0-0.7) Basophils # (Auto) 0.0 x10^3/uL (0.0-0.2) POC Sodium 138 mmol/L (135-145) POC Potassium 3.9 mmol/L (3.5-5.0) POC Chloride 103 mmol/L (98-110) POC Total CO2 25 mmol/L (23-32) Anion Gap 16 mmol/L (6-14) H POC Blood Urea Nitrogen 12 mg/dL (8-26) POC Creatinine 0.7 mg/dL (0.5-1.4) Glucose Level 91 mg/dL (60-99) POC Ionized Calcium (Vianney) 1.23 mmol/L (1.13-1.32) POC Troponin I 0.00 ng/ml (<0.08) Vital Signs: Vital Signs Date Time Temp Pulse Resp B/P (MAP) Pulse Ox O2 Delivery O2 Flow Rate FiO2 06/12/21 08:56 98.1 103 18 146/84 (104 98 Room Air EKG: EKG: Sinus tachycardia, heart rate 111 bpm, slight left axis deviation, no ST elevation or depression, no ectopy. [] Radiology/Procedures: Radiology/Procedures: [address] [address] IMAGING REPORT Signed PATIENT: ALDAIR HATFIELD AACCOUNT: [id number] : 1990 LOCATION: ER AGE: 31 SEX: F EXAM STATUS: REG ER ORD. PHYSICIAN: MEME DIAZ MD REASON: chest pressure/coughing up blood PROCEDURE: CHEST AP ONLY EXAMINATION: XR CHEST 1V CLINICAL HISTORY: Chest pressure/coughing up blood EXAM DATE/TIME: 06/12/2021 9:36 AM COMPARISON: 03/09/2019 FINDINGS: Lines, Tubes, and Devices: None. Cardiomediastinal Silhouette: Within normal limits. Lungs and Pleura: Pulmonary hypoexpansion without evidence of focal airspace consolidation or pleural effusion. Pulmonary vasculature unremarkable. Bones and Soft Tissues: No acute osseous abnormality. IMPRESSION: No evidence of acute cardiopulmonary abnormality or significant interval change. Electronically signed by: Adrian Parra DO (06/12/2021 10:15 AM) [facility] DICTATED AND SIGNED BY: ADRIAN PARRA DO DATE: 06/12/21 1014 CC: MEME DIAZ MD; NILESH PAREKH MD ~MTH0 0 [] Heart Score: C/O Chest Pain: Yes HEART Score for Chest Pain: HEART Score for Chest Pain Response (Comments) Value History Slighlty/Non-Suspicious 0 ECG Normal 0 Age < 45 0 Risk Factors 1 or 2 Risk Factors 1 Troponin < Normal Limit 0 Total 1 Risk Factors: Risk Factors: DM, Current or recent (<one month) smoker, HTN, HLP, family history of CAD, obesity. Risk Scores: Score 0 - 3: 2.5% MACE over next 6 weeks - Discharge Home Score 4 - 6: 20.3% MACE over next 6 weeks - Admit for Clinical Observation Score 7 - 10: 72.7% MACE over next 6 weeks - Early Invasive Strategies Course & Med Decision Making: Course & Med Decision Making Pertinent Labs and Imaging studies reviewed. (See chart for details) Pain relieved by GI cocktail [] Dragon Disclaimer: Dragon Disclaimer: This electronic medical record was generated, in whole or in part, using a voice recognition dictation system. Departure Departure: Impression: Primary Impression: GERD (gastroesophageal reflux disease) Disposition: HOME / SELF CARE / HOMELESS Condition: STABLE Referrals: NILESH PAREKH MD (PCP) Patient Instructions: Diet for Gastroesophageal Reflux Disease, Adult MEME DIAZ MD Jun 12, 2021 10:44
--- NOTE | 2021-06-12 11:05 | EKG ---
[address] [address] Test Date: 2021-06-12 Test Time: 08:54:55 Pat Name: ALDAIR HATFIELD Department: Room: Gender: F [employer] Manager: WILLY : 1990 Requested By: MEME DIAZ Order Number: [id number] Reading MD: Jordon Robertson Measurements Intervals [place] Rate: 111 P: 41 ID: [id number] QRS: 0 QRSD: 86 T: 25 QT: 336 QTc: 460 Interpretive Statements SINUS TACHYCARDIA LEFTWARD AXIS Electronically Signed On 06-13-2021 10:13:48 SET DESIGNER by Jordon Robertson
[2021-06-12] MEDS ORDERED: LIDO:MAALOX 1:1 20 ML SINGLE DOSE. PO ONE (11:15)
[2021-06-12 11:28] LABS: BACTERIA,URINE 0 /HPF (0-FEW); BILIRUBIN,URINE NEG (NEG); CLARITY,URINE CLEAR; COLOR,URINE YELLOW; GLUCOSE,URINE NEG (NEG); NITRITE,URINE NEG (NEG); RBC,URINE OCC /HPF (0-2); SQUAMOUS EPITHELIAL CELL,UR FEW /LPF; UROBILINOGEN,URINE 0.2 mg/dL (0.2 mg/dL); WBC,URINE RARE /HPF (0-4)
[2021-06-12] MEDS ORDERED: FAMOTIDINE 20 MG/2 ML VIAL ONE (12:10)
[2021-06-12] MEDS ORDERED: FAMOTIDINE 20 MG/2 ML VIAL IVP ONE (12:15)
[2021-06-12 19:26] LABS: ALBUMIN 3.5 g/dL (3.4-5.0); ALBUMIN/GLOBULIN RATIO 0.8 (1.0-1.7); CALCIUM 9.1 mg/dL (8.5-10.1); CREATININE 0.8 mg/dL (0.6-1.0); GFR 83.1; TOTAL BILIRUBIN 0.2 mg/dL (0.2-1.0)
[2021-06-12 19:28] LABS: POTASSIUM 3.9 mmol/L (3.5-5.1)
[2021-06-12 19:29] LABS: LIPASE 124 U/L (73-393); TOTAL PROTEIN 7.8 g/dL (6.4-8.2)
== END 2021-06-12 12:13 | disposition home or self-care (01) ==
LOC: ER 08:46
DX: K21.9 Gastro-esophageal reflux disease without esophagitis (principal); I10 Essential (primary) hypertension; Z90.89 Acquired absence of other organs; Z91.040 Latex allergy status; Z88.2 Allergy status to sulfonamides
CPT/HCPCS: 36415; 71045; 80047; 80053; 81001; 81025; 83690; 83880; 84484; 85025; 93005; 99285-25

== ENCOUNTER 2021-07-29 16:02 | Emergency (ER) | payer BC ==
[~2021-07-29] VITALS: Ht 172.7 cm; Wt 124.0 kg
--- NOTE | 2021-07-29 16:29 | PHYS DOC ---
Past History Past Medical History: Anxiety, Hypertension (ELINOR GILL APRN) Past Surgical History: Appendectomy, Other Additional Past Surgical Histo: hip (ELINOR GILL APRN) Smoking: Non-smoker Alcohol Use: None Drug Use: None (ELINOR GILL APRN) General Adult EDM: Chief Complaint: UPPER EXTREMITY INJURY HPI: HPI: Patient is a 31-year-old female who presents to the emergency department today for left elbow and wrist pain after slipping on ice. Patient reports that she stepped down off of a step and thought it was just no but it was ice underneath when she slipped and fell onto her out stretched left arm 20 minutes prior to arrival.. Patient rates her pain 8 out of 10. No treatment prior to arrival. Pain is worse with movement. Patient is reporting an abrasion to her left forearm as well as swelling to her forearm and wrist. She denies hitting her head or loss of consciousness, neck or back pain, decreased range of motion or decreased sensation in her left arm. She reports that she has a history of hypertension and did take her antihypertensive meds today but she reports that her pain may be contributing to her elevated blood pressure reading in the emergency department. (ELINOR GILL APRN) Review of Systems: Review of Systems: Constitutional: negative unless reported in HPI Eyes: negative unless reported in HPI HENT: negative unless reported in HPI Respiratory: negative unless reported in HPI Cardiovascular: negative unless reported in HPI GI: negative unless reported in HPI : negative unless reported in HPI Musculoskeletal: negative unless reported in HPI Integument: negative unless reported in HPI Neurologic: negative unless reported in HPI Endocrine: negative unless reported in HPI Lymphatic: negative unless reported in HPI Psychiatric: negative unless reported in HPI (ELINOR GILL APRN) Current Medications: Current Meds: Current Medications Medications (Trade) Dose Ordered Sig/Paradise Start Time Stop Time Status Last Admin Dose Admin Acetaminophen/ Hydrocodone Bitart (Lortab 5/325) 1 tab 1X ONCE 07/29/21 16:30 07/29/21 16:31 (ELINOR GILL APRN) Allergies: Allergies: Allergies Coded Allergies Type Severity Reaction Last Updated Verified latex Allergy Intermediate 07/29/21 Yes Sulfa (Sulfonamide Antibiotics) Allergy Unknown 07/29/21 Yes (ELINOR GILL APRN) Physical Exam: PE: Constitutional: Well developed, well nourished, no acute distress, non-toxic appearance. [] HENT: Normocephalic, atraumatic, bilateral external ears normal, oropharynx moist, no oral exudates, nose normal. [] Eyes: PERRL, EOMI, conjunctiva normal, no discharge. [] Neck: Normal range of motion, no stridor Cardiovascular: No peripheral perfusion Lungs & Thorax: Normal work of breathing, no tachypnea Abdomen: Soft and obese Skin: Warm, dry, no erythema, no rash. [] Back: Normal range of motion Extremities: No tenderness, no cyanosis, no clubbing, ROM intact, no edema. [] Left wrist: Mild swelling noted to left forearm, no crepitus, no obvious deformity, abrasion noted to left forearm, range of motion intact, neuro intact. Left breast: Swelling noted, pain with flexion of wrist, full extension no crepitus, neuro intact, no open wounds/ecchymosis. Neurologic: Alert and oriented X 3, normal motor function, normal sensory function, no focal deficits noted. [] Psychologic: Affect normal, judgement normal, mood normal. [] (ELINOR GILL APRN) EKG: EKG: [] (ELINOR GILL APRN) Radiology/Procedures: Radiology/Procedures: []PROCEDURE: WRIST 3V LEFT EXAM: 3 views views of the left wrist, 3 views of the left elbow DATE: 07/29/2021 4:49 PM INDICATION: Reason: fall / Spl. Instructions: / History: COMPARISON: No Prior FINDINGS: Elbow: No elbow joint effusion. No acute fracture or dislocation. No significant degenerative/reactive change No significant soft tissue swelling. Wrist: No acute fracture or dislocation. Joint spaces are preserved without significant degenerative/proliferative change. No significant soft tissue swelling. IMPRESSION: No acute fracture or dislocation. Electronically signed by: Franko Stout DO (07/29/2021 5:07 PM) [facility] DICTATED AND SIGNED BY: FRANKO STOUT DO DATE: 07/29/21 1703 CC: NLIESH PAREKH MD; ELINOR GILL APRN ~MTH0 0 (ELINOR GILL APRN) Heart Score: C/O Chest Pain: N/A Risk Factors: Risk Factors: DM, Current or recent (<one month) smoker, HTN, HLP, family history of CAD, obesity. Risk Scores: Score 0 - 3: 2.5% MACE over next 6 weeks - Discharge Home Score 4 - 6: 20.3% MACE over next 6 weeks - Admit for Clinical Observation Score 7 - 10: 72.7% MACE over next 6 weeks - Early Invasive Strategies (ELINOR GILL APRN) Course & Med Decision Making: Course & Med Decision Making Patient presents to the emergency department for left wrist and elbow pain after falling onto it today. Imaging was performed that showed no acute fracture. Patient's extremity is neurovascularly intact. Patient's pain treated in the ER. Patient's wrist placed in a Velcro wrist splint she was given an ice pack. Patient educated on the rice protocol. Patient advised to take anti- inflammatory medications. Patient discharged home with pain medication. I discussed with patient all findings and diagnostic testing as well as the need to follow-up with PCP for further evaluation and treatment or return to the ER if any new or worsening symptoms. Strict return precautions were also discussed at length. Patient voiced understanding and agreement with the plan. Patient is hemodynamically stable at the time of disposition. Pertinent Labs and Imaging studies reviewed. (See chart for details) [] (ELINOR GILL APRN) Course & Med Decision Making I was the Attending physician on the above date of service of this patient. This patient was evaluated, examined, treated, and dispositioned from the emergency department by the mid-level practitioner. Although I was working at the time , no assistance was requested. Electronically signed, Bella Rosales DO (BELLA ROSALES DO) Alisa Disclaimer: Alisa Disclaimer: This electronic medical record was generated, in whole or in part, using a voice recognition dictation system. (ELINOR GILL APRN) Departure Departure: Impression: Primary Impression: Fall Qualified Codes: W19.XXXA - Unspecified fall, initial encounter Disposition: HOME / SELF CARE / HOMELESS Condition: GOOD Referrals: NILESH PAREKH MD (PCP) Patient Instructions: PAUL - Routine Care for Injuries Additional Instructions: You were seen in the emergency department today for left elbow and wrist pain after falling. Imaging was performed that showed no acute findings. Your elbow was placed in a Grover wrap and you were given a Velcro wrist splint. This will likely improve over time. Your symptoms may be improved by something called the rice protocol. This is rest, ice, compression, elevation. Please follow-up when doing intense exercises that may make the pain worse. Sometimes gentle stretching can provide relief, but be careful to injury. It is important to perform gentle range of motion exercises to prevent stiff joints and chronic pain. Use ice packs over the affected areas to help decrease your pain. For the first 24 hours you can apply ice 20 minutes on 20 minutes off for 4 times per day. Sometimes compression such as the use of an Grover wrap can help with the swelling. You may also elevate the affected area to help with the swelling. You can take ibuprofen at home for pain. For severe pain, you are being discharged home with pain medication called [place]. This medication is hydrocodone and Tylenol and a combination tablet. Do not take any additional Tylenol with this medication. This medication may cause sedation so do not take when you need to be alert, driving a vehicle or with alcohol. Follow-up with your primary care provider tomorrow regarding your ER visit. Return to the emergency department if you develop worsening of your pain, any new injuries, decreased range of motion or decreased sensation in your extremity. Scripts Hydrocodone Bit/Acetaminophen (HYDROCODONE-APAP 5-325 ) 1 Each Tablet 1 TAB PO PRN Q6HRS PRN for PAIN for 2 Days, #8 TAB 0 Refills Prov: ELINOR GILL APRN 07/29/21 ELINOR GILL APRN Jul 29, 2021 16:29 BELLA ROSALES DO Jul 30, 2021 06:11
[2021-07-29] MEDS ORDERED: HYDROcodone/APAP 5/325MG 1 TAB TABLET PO ONE (16:30)
--- NOTE | 2021-07-29 17:10 | RAD ---
EXAM: 3 views views of the left wrist, 3 views of the left elbow DATE: 07/29/2021 4:49 PM INDICATION: Reason: fall / Spl. Instructions: / History: COMPARISON: No Prior FINDINGS: Elbow: No elbow joint effusion. No acute fracture or dislocation. No significant degenerative/reactive aponte e No significant soft tissue swelling. Wrist: No acute fracture or dislocation. Joint spaces are preserved without significant degenerative/prolife rative change. No significant soft tissue swelling. IMPRESSION: No acute fracture or dislocation. Electronically signed by: Aaron Stout DO (07/29/2021 5:07 PM) [facility]
[2021-07-29] MEDS ORDERED: HYDR-2155 PO (17:18)
[2021-07-29 17:20] VITALS: BP 141/82
== END 2021-07-29 17:30 | disposition home or self-care (01) ==
LOC: ER 16:08
DX: S50.812A Abrasion of left forearm, initial encounter (principal); M25.532 Pain in left wrist; F41.9 Anxiety disorder, unspecified; I10 Essential (primary) hypertension; Z91.040 Latex allergy status; Z88.2 Allergy status to sulfonamides; W00.0XXA Fall on same level due to ice and snow, initial encounter; Y93.89 Activity, other specified; Y92.89 Other specified places as the place of occurrence of the external cause; Y99.8 Other external cause status
CPT/HCPCS: 29125; 73080; 73110; 99284